=== PATIENT | female | born 2000 | race Two or more races ===

== ENCOUNTER 2023-05-31 00:44 | Emergency (ER) | payer OTHER ==
[~2023-05-31] VITALS: Ht 170.2 cm; Wt 61.2 kg
[2023-05-31] MEDS ORDERED: REDNESS RELIEF15 M2 OP (03:23)
[2023-05-31] MEDS ORDERED: GENTAMICIN SULFA5 ML OP (03:23)
[2023-05-31] MEDS ORDERED: NAPHAZOLINE HCL/PHENIRAMINE 20 DR/ML DROPS OP STA (03:34)
[2023-05-31] MEDS ORDERED: GENTAMICIN SULFATE 0.15 MG/DR DROPS 5ML OP STA (03:35)
[2023-05-31] MEDS ORDERED: TETRACAINE HCL 20 DR/ML DROPS OP STA (03:36)
== END 2023-05-31 03:33 ==
LOC: ER 00:45
DX: H10.89 Other conjunctivitis (principal)